=== PATIENT | male | born 1950 | race Caucasian/White ===

== ENCOUNTER 2024-01-26 14:40 | Outpatient (OUT) | payer MEDICARE, SELFPAY | END 2024-01-26 14:41 | disposition home or self-care (01) | LOC: PST 14:41 | PROVIDERS: Family Provider Internal Medicine; Visit Provider Surgery | DX: Z01.818 Encounter for other preprocedural examination (principal); R19.5 Other fecal abnormalities ==

== ENCOUNTER 2024-02-03 07:19 | Day surgery (SDC) | payer MEDICARE, SELFPAY ==
--- NOTE | 2024-02-03 | OP_ITS ---
OPERATION DATE: 02/03/2024 PREOPERATIVE DIAGNOSIS: Positive Cologuard. POSTOPERATIVE DIAGNOSIS: Severe sigmoid diverticulosis, colon polyps x3; transverse colon with 3 mm and 7 mm polyps and sigmoid colon with 4 mm polyp. PROCEDURE: Colonoscopy to cecum with cold snare polypectomy x3. SURGEON: Rashad Valadez M.D. ANESTHESIA: Monitored anesthesia care. ESTIMATED BLOOD LOSS: Less than 1 mL. INDICATIONS AND CONSENT: Patient is a 73-year-old male presents for positive Cologuard. Indications, risks, benefits, alternatives of proceeding with colonoscopy were explained extensively to the patient, including the risks of bleeding, colon perforation or anesthetic complications. All of his questions were answered. Informed consent was obtained. PROCEDURE: Patient brought to the operating room, placed in the left lateral decubitus position. Monitored anesthesia care was provided. Rectal exam was performed which showed no masses or blood. The scope was inserted into the anal canal. Under direct visualization was advanced. With the aid of abdominal compression, it was advanced to the cecum where cecal markings were clearly identified. There was noted to be a good prep. Upon withdrawal of the scope, mucosal surfaces were carefully examined. There were no mass lesions or inflammatory changes. Within the transverse colon, there was noted to be a 3 mm sessile polyp that was removed with cold biopsy forceps with good hemostasis. Just distal to this was a 7 mm irregular sessile polyp that was removed with cold snare in a piecemeal fashion with good hemostasis. There was severe sigmoid diverticulosis. Within the sigmoid, there was noted to be a 4 mm, sessile polyp that was removed with cold snare with good hemostasis. The scope was retroflexed in the anal canal. There were prominent rectal veins but no significant hemorrhoidal disease. The scope was then withdrawn. Patient tolerated procedure well, was sent to recovery room in good condition. Follow up colonoscopy likely three years, but will depend on pathology results. CC: João Cordero D.O. JOE
--- OUTSIDE RECORDS SUMMARY | 2024-02-03 07:23 | XMS_ITS ---
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 Name Role Phone SHANITA CORDERO Admitting SHANITA Haile Attending Unavailable SHANITA CORDERO Consulting Unavailable ROBB REEVES V Consulting Unavailable SHANITA CORDERO JR Primary Care Physician Rashad CABALLERO Attending Unavailable SHANITA CORDERO Referring Unavailable Allergies Allergy Classification Reported Allergen(s) Allergy Type Date of Onset Reaction(s) Facility (1 source) No Known Medication Allergies; Translations: [No Known Medication Allergies] Propensity to adverse reactions (disorder) [facility] Repository Encounters Encounter Date Encounter Type Care Provider Facility Start: 12-23-2023 End: 12-23-2023 ambulatory [facility]ad [facility] Start: 12-23-2023 End: 12-23-2023 Patient encounter procedure Rashad CABALLERO [facility] Start: 09-07-2023 ambulatory Rashad CABALLERO Facility:[facility] Start: 12-22-2018 End: 12-23-2018 Patient encounter procedure SHANITA CORDERO Facility:[facility] Immunizations Immunization Date Immunization Notes Care Provider Fa amalia 04-15-2022 SARS-CoV-2 (COVID-19 ) [id number] Rashad CABALLERO [facility] 05-29-2021 SARS-CoV-2 (COVID-19 ) mRNA BNT-162b2 vax Rashad CABALLERO [facility] Comment on above: Result Comment: 2023: [id number] Medications Current Medications Medication Drug Class(es) Dates Sig (Normalized) Sig (Original) 3 ML semaglutide 1.34 MG/ML Pen Injector [Ozempic] (1 source) Start: 11-30-2023 inject 1 mg by subcutaneous injection every week Ozempic (1 mg dose) 4 mg/3 mL subcutaneous solution 1 mg, SubCutaneous, qWeek, Refills(s) 0 Start Date: 11/30/23 Status: Ordered allopurinol 100 mg oral tablet (1 source) Xanthine Oxidase Inhibitor Start: 11-30-2023 take 2 tablets by mouth once daily allopurinol 100 mg Tab 200 mg = 2 tab(s), Oral, Daily, Refills(s) 0 Start Date: 11/30/23 Status: Ordered apixaban 5 mg oral tablet (1 source) Factor Xa Inhibitor Start: 11-30-2023 take 1 tablet by mouth twice daily Eliquis 5 mg oral tablet 5 mg = 1 tab(s), Oral, BID, Refills(s) 0 Start Date: 11/30/23 Status: Ordered empagliflozin 25 mg oral tablet (1 source) Sodium-Glucose Cotransporter 2 Inhibitor Start: 11-30-2023 take 1 tablet by mouth once daily in the morning Jardiance 25 mg oral tablet 25 mg = 1 tab(s), Oral, qAM, Refills(s) 0 Start Date: 11/30/23 Status: Ordered ezetimibe 10 mg oral tablet (1 source) Dietary Cholesterol Absorption Inhibitor Start: 11-30-2023 take 1 tablet by mouth once daily Zetia 10 mg Tab 10 mg = 1 tab(s), Oral, Daily, Refills(s) 0 Start Date: 11/30/23 Status: Ordered fluticasone propionate 0.05 mg/actuat metered dose nasal spray (1 source) Corticosteroid Start: 11-30-2023 Flonase 0.05 mg/inh Hamill 2 spray(s), Nasal, BID, Refill(s) 0 Start Date: 11/30/23 Status: Ordered 24 hr metoprolol succinate 100 mg extended release oral tablet (1 source) beta-Adrenergic Sylvia Start: 11-30-2023 take 1 tablet by mouth once daily Toprol XL 100 mg Tab-ER 100 mg = 1 tab(s), Oral, Daily, Refills(s) 0 Start Date: 11/30/23 Status: Ordered montelukast 10 mg oral tablet (1 source) Leukotriene Receptor Antagonist Start: 11-30-2023 take 1 tablet by mouth once daily Singulair 10 mg Tab 10 mg = 1 tab(s), Oral, Daily, Refills(s) 0 Start Date: 11/30/23 Status: Ordered pantoprazole 40 mg delayed release oral tablet (1 source) Proton Pump Inhibitor Start: 11-30-2023 take 1 tablet by mouth once daily Protonix 40 mg Tab-DR 40 mg = 1 tab(s), Oral, Daily, Refills(s) 0 Start Date: 11/30/23 Status: Ordered rosuvastatin calcium 5 mg oral tablet (1 source) HMG-CoA Reductase Inhibitor Start: 11-30-2023 take 1 tablet by mouth once daily Crestor 5 mg Tab 5 mg = 1 tab(s), Oral, Daily, Refills(s) 0 Start Date: 11/30/23 Status: Ordered Trelegy Ellipta 100 mcg-62.5 mcg-25 mcg inhalation powder (1 source) Start: 11-30-2023 take 1 puff(s) by inhalation once daily Trelegy Ellipta 100 mcg-62.5 mcg-25 mcg inhalation powder = 1 puff(s), Inhalation, Daily, Refills(s) 0 Start Date: 11/30/23 Status: Ordered Vitamin D2 2000 intl units oral capsule (1 source) Start: 11-30-2023 take 1 capsule by mouth once daily Vitamin D2 2000 intl units oral capsule 50 mcg = 1 cap(s), Oral, Daily, cap(s), Refills(s) 0 Start Date: 11/30/23 Status: Ordered Payers Date Payer Category Payer Private Health Insurance [id number] 1959 Medicare [id number] 1950 Unknown [id number] 1950 Unknown [id number] Problems Problem Classification Problem Date Documented Da te Episodic/Chronic Aortic; peripheral; and visceral artery aneurysms (2 sources) Abdominal aortic aneurysm, without rupture; Translations: [Abdominal aortic aneurysm] Onset: 12-30-2018 11-30-2023 Chronic Cardiac dysrhythmias (1 source) Atrial fibrillation 12-23-2023 Chronic Deficiency and other anemia (1 source) Iron deficiency anemia 11-30-2023 Episodic Diabetes mellitus without complication (1 source) Diabetes mellitus 11-30-2023 Chronic Disorders of lipid metabolism (1 source) Hyperlipidemia 11-30-2023 Chronic Diverticulosis and diverticulitis (1 source) Diverticular disease 11-30-2023 Chronic Essential hypertension (2 sources) Essential (primary) hypertension; Translations: [Essential hypertension] Onset: 12-30-2018 11-30-2023 Chronic Gout and other crystal arthropathies (1 source) Gout 11-30-2023 Chronic Nonspecific chest pain (4 sources) Other chest pain; Translations: [OTHER CHEST PAIN] Onset: 12-22-2018 Episodic Nutritional deficiencies (1 source) Vitamin D deficiency 11-30-2023 Chronic Other circulatory disease (1 source) H/O: cardiovascular disease 11-30-2023 Episodic Other circulatory disease (1 source) History of subarachnoid hemorrhage 11-30-2023 Episodic Other connective tissue disease (1 source) Neurological deficit 11-30-2023 Episodic Other gastrointestinal disorders (1 source) Abnormal feces; Translations: [Other fecal abnormalities] Onset: 12-23-2023 Episodic Other nutritional; endocrine; and metabolic disorders (1 source) Body mass index 30+ - obesity 12-23-2023 Chronic Other nutritional; endocrine; and metabolic disorders (1 source) Obesity caused by energy imbalance 12-23-2023 Chronic Other screening for suspected conditions (not mental disorders or infectious disease) (1 source) Stool DNA-based colorectal cancer screening positive 11-30-2023 Episodic Other upper respiratory disease (1 source) Allergic rhinitis 11-30-2023 Chronic Residual codes; unclassified (1 source) Personal history of other specified conditions; Translations: [PERSONAL HISTORY OTH SPEC CONDITION] Onset: 12-30-2018 Episodic Residual codes; unclassified (1 source) Insomnia 11-30-2023 Episodic Spondylosis; intervertebral disc disorders; other back problems (1 source) Cervical spondylosis 11-30-2023 Chronic Procedures Date Procedure Procedure Detail Performing Clinician Start: 07-12-2015 Colonoscopy Rashad SR Start: 08-03-2001 Craniotomy Rashad SR Cardiac catheterization Yuriy CABALLERO Colonoscopy Rashad ADA Esophagogastroduodenoscopy M ryann WILKINSCassia Results Test Name Value Interpretation Reference Range Facility Insurance Correspondenceon 0 01-22-2024 Insurance Correspondence [id number]#1.00TIFF Normal [facility] Consent for Procedure/Surger yon 12-24-2023 Consent for Procedure/Surgery [id number]# 1.00TIFF Normal [facility] Facesheeton 12-24-2023 Facesheet [id number]# 1.00TIFF Normal [facility] Formson 12-24-2023 Forms [id number]# 1.00TIFF [facility] Ambulatory Visit Summaryon 0 12-23-2023 Ambulatory Visit Summary MANNIE MACIEL :1950 Visit Date:12/23/2023 Ambulatory Visit Instructions Your Diagnosis Positive colorectal cancer screening using Cologuard test Your Care Team Attending Physician - ADA BALDERRAMA, Rashad Sheriff Primary Care Physician - SHANITA CORDERO JR, DO Referring Physician - SHANITA CORDERO JR, DO This Is Your Medications List Contact prescribing physician if questions or concerns allopurinol (allopurinol 100 mg Tab) apixaban (Eliquis 5 mg oral tablet) empagliflozin (Jardiance 25 mg oral tablet) ergocalciferol (Vitamin D2 2000 intl units oral capsule) ezetimibe (Zetia 10 mg Tab) fluticasone nasal (Flonase 0.05 mg/inh Hamill) fluticasone/umeclidi nium/vilanterol (Trelegy Ellipta 100 mcg-62.5 mcg-25 mcg inhalation powder) metoprolol (Toprol XL 100 mg Tab-ER) montelukast (Singulair 10 mg Tab) pantoprazole (Protonix 40 mg Tab-DR) rosuvastatin (Crestor 5 mg Tab) semaglutide (Ozempic (1 mg dose) 4 mg/3 mL subcutaneous solution) Procedures Performed Colonoscopy (07/12/2015), Craniotomy (2001), Cardiac catheterization, Colonoscopy, EGD - esophagogastroduoden oscopy. Discharge Vitals Heart Rate (Peripheral) 68 Respiratory Rate 16 Blood Pressure 112/60 Height 167 cm Height 66 in Weight 88.4 kg Weight 194.48 lb BMI 31.7 Medications What How Much When Instructions Unchanged allopurinol (allopurinol 100 mg Tab) 2 Tablets By Mouth Every day Contact prescribing physician if questions or concerns Unchanged apixaban (Eliquis 5 mg oral tablet) 1 Tablets By Mouth 2 times a day Contact prescribing physician if questions or concerns Unchanged empagliflozin (Jardiance 25 mg oral tablet) 1 Tablets By Mouth Once a day (in the morning) Contact prescribing physician if questions or concerns Unchanged ergocalciferol (Vitamin D2 2000 intl units oral capsule) 1 Capsules By Mouth Every day Contact prescribing physician if questions or concerns Unchanged ezetimibe (Zetia 10 mg Tab) 1 Tablets By Mouth Every day Contact prescribing physician if questions or concerns Unchanged fluticasone nasal (Flonase 0.05 mg/ inh Hamill) 2 Sprays Nasal Inhalation 2 times a day Contact prescribing physician if questions or concerns Unchanged fluticasone/ umeclidinium/ vilanterol (Trelegy Ellipta 100 mcg-62.5 mcg-25 mcg inhalation powder) 1 Puffs Inhalation Every day Contact prescribing physician if questions or concerns Unchanged metoprolol (Toprol XL 100 mg Tab-ER) 1 Tablets By Mouth Every day Contact prescribing physician if questions or concerns Unchanged montelukast (Singulair 10 mg Tab) 1 Tablets By Mouth Every day Contact prescribing physician if questions or concerns Unchanged pantoprazole (Protonix 40 mg Tab-DR) 1 Tablets By Mouth Every day Contact prescribing physician if questions or concerns Unchanged rosuvastatin (Crestor 5 mg Tab) 1 Tablets By Mouth Every day Contact prescribing physician if questions or concerns Unchanged semaglutide (Ozempic (1 mg dose) 4 mg/ 3 mL subcutaneous solution) 1 Milligram Subcutaneous Every week Contact prescribing physician if questions or concerns Allergies No Known Allergies No Known Medication Allergies Problems Ongoing - Any problem that you are currently receiving treatment for. Abdominal aortic aneurysm Allergic rhinitis Atrial fibrillation BMI 31.0-31.9,adult Diabetes Diverticulosis DJD (degenerative joint disease), cervical Essential hypertension Gout History of intracranial aneurysm History of subarachnoid hemorrhage Hyperlipidemia Insomnia Iron deficiency anemia Neurosensory deficit Obesity due to excess calories Positive colorectal cancer screening using Cologuard test Vitamin D deficiency Patient Survey You may receive a survey via text or e-mail asking about your office visit. Please share your experience with us by completing your survey. We appreciate your feedback and thank you for choosing us for your care. Normal [facility] Lab Reportson 12-02-2023 Lab Reports [id number] #1.00TIFF Normal [facility] Physician Referralon 024 Physician Referral [id number] #1.00TIFF Normal [facility] Transfer Inon 09-08-2023 Transfer In [id number] #1.00TIFF Normal [facility] C-Reactive Proteinon 021 C-Reactive Protein 5.4 mg/dL High 0.0-1.0 [facility] Comment on above: Result Comment: PERF ORMED BY: [place] [address] PATHOLOGIST XRAY TECH ELEN DE LEON M.D. Performed By: #### C BC, LDH, CRP, CMP, HS TROP, DEREK #### [address] head/brain wo conon 03-30 CT head/brain wo con [facility] [place] [address] CT Scan Report Signed Patient: Mannie Maciel MR#: [id number] : 1950 Acct:[id number] Age/Sex: 70 / M ADM Date: 03/30/21 Loc: ER Room: Type: [facility] ER Attending Dr: Ordering Provider: Consuelo Abdi APRN Date of Service: 03/30/21 CT/CT head/brain wo con: Syncopal episode Copies to: Consuelo Abdi APRN CT head 03/30/2021. CLINICAL DATA: Syncopal episode. TECHNIQUE: CT of the head was performed without contrast. This CT exam was performed using one or more of the following dose reduction techniques: Automated exposure control, adjustment of the mA and/or kV according to patient size, or use of iterative reconstruction technique. COMPARISON: None. FINDINGS: The patient is status post right frontotemporal craniotomy and there is an aneurysm clip in the right suprasellar region. There are mild parenchymal volume loss and chronic microvascular ischemic changes. There are no findings to suggest an acute large vessel infarct. There is no acute intracranial hemorrhage. No intracranial mass or mass effect is identified. No abnormal extra-axial fluid collection is seen. The visualized paranasal sinuses and the mastoids appear unremarkable. CT/CT head/brain wo con IMPRESSION: 1. Postsurgical changes. 2. Mild parenchymal volume loss and chronic microvascular ischemic changes. 3. No acute intracranial abnormality. Impression dictated by: Jacob Rousseau Jr., M.D.03/30/2021 2:49 PM Dictation Location: [place] [address] Transcribed By: [facility] 03/30/21 1449 Dictated By: Jacob Rousseau Jr, MD 03/30/21 1446 Signed By: 03/30/21 1449 Normal [facility] Complete Blood Count Auto Di ffon 03-30-2021 Basophils (Bld) [#/Vol] 0.0 10*3/uL Normal 0.0-0.2 [facility] Comment on above: Result Comment: PERF ORMED BY: [address] [place] [address] PATHOLOGIST XRAY TECH ELEN DE LEON M.D. Performed By: #### C BC, LDH, CRP, CMP, HS TROP, DEREK #### [facility] [address] Basophils/100 WBC (Bld) 0.5 % Normal . [facility] Comment on above: Performed By: #### C BC, LDH, CRP, CMP, HS TROP, DEREK #### [facility] [address] [place] [address] [place] Eosinophils (Bld) [#/Vol] 0.0 10*3/uL Normal 0.0-0.45 [facility] Comment on above: Performed By: #### C BC, LDH, CRP, CMP, HS TROP, DEREK #### [address] Eosinophils/100 WBC (Bld) 0.1 % Normal . [facility] Comment on above: Performed By: #### C BC, LDH, CRP, CMP, HS TROP, DEREK #### [address] Erythrocyte distribution width (RBC) [Ratio] 14.8 % Normal 12.0-14.8 [facility] Comment on above: Performed By: #### C BC, LDH, CRP, CMP, HS TROP, DEREK #### [address] Hematocrit (Bld) [Volume fraction] 40.0 % Normal 38.8-50.0 [facility] Comment on above: Performed By: #### C BC, LDH, CRP, CMP, HS TROP, DEREK #### [address] Hemoglobin (Bld) [Mass/Vol] 13.2 g/dL Normal 13.0-17.0 [facility] Comment on above: Performed By: #### C BC, LDH, CRP, CMP, HS TROP, DEREK #### [address] Lymphocytes (Bld) [#/Vol] 0.5 10*3/uL Low 1.00-4.8 [facility] Comment on above: Performed By: #### C BC, LDH, CRP, CMP, HS TROP, DEREK #### [address] Lymphocytes/100 WBC (Bld) 10.8 % Normal . [facility] Comment on above: Performed By: #### C BC, LDH, CRP, CMP, HS TROP, DEREK #### [address] MCH (RBC) [Entitic mass] 30.3 pg Normal 27.5-35.2 [facility] Comment on above: Performed By: #### C BC, LDH, CRP, CMP, HS TROP, DEREK #### [address] MCV (RBC) [Entitic vol] 91.3 fL Normal 83.5-101 [facility] Comment on above: Performed By: #### C BC, LDH, CRP, CMP, HS TROP, DEREK #### [address] Mean Corpuscular HGB Conc 33.1 g/dL Normal 32.5-35.6 [facility] Comment on above: Performed By: #### C BC, LDH, CRP, CMP, HS TROP, DEREK #### [address] Monocytes (Bld) [#/Vol] 0.4 10*3/uL Normal 0.0-0.8 [facility] Comment on above: Performed By: #### C BC, LDH, CRP, CMP, HS TROP, DEREK #### [address] Monocytes/100 WBC (Bld) 8.5 % Normal . [facility] Comment on above: Performed By: #### C BC, LDH, CRP, CMP, HS TROP, DEREK #### [address] Neutrophils (Bld) [#/Vol] 3.9 10*3/uL Normal 1.8-7.7 [facility] Comment on above: Performed By: #### C BC, LDH, CRP, CMP, HS TROP, DEREK #### [address] Neutrophils/100 WBC (Bld) 80.1 % Normal . [facility] Comment on above: Performed By: #### C BC, LDH, CRP, CMP, HS TROP, DEREK #### [place] [address] [place] Nucleated RBC/100 WBC (Bld) [Ratio] 0.0 % Normal 0-0.5 [facility] Comment on above: Performed By: #### C BC, LDH, CRP, CMP, HS TROP, DEREK #### [address] Platelet mean volume (Bld) [Entitic vol] 7.6 fL Normal 6.6-10.1 [facility] Comment on above: Performed By: #### C BC, LDH, CRP, CMP, HS TROP, DEREK #### [address] Platelets (Bld) [#/Vol] 211 10*3/uL Normal 150-450 [facility] Comment on above: Performed By: #### C BC, LDH, CRP, CMP, HS TROP, DEREK #### [address] RBC (Bld) [#/Vol] 4.38 10*6/uL Normal 3.90-5.60 [facility] Comment on above: Performed By: #### C BC, LDH, CRP, CMP, HS TROP, DEREK #### [address] WBC (Bld) [#/Vol] 4.8 10*3/uL Normal 4.5-11.0 [facility] Comment on above: Performed By: #### C BC, LDH, CRP, CMP, HS TROP, DEREK #### [address] Comprehensive Metabolic Pane andres 03-30-2021 Albumin [Mass/Vol] 3.7 g/dL Normal 3.2-5.5 [facility] Comment on above: Performed By: #### C BC, LDH, CRP, CMP, HS TROP, DEREK #### [address] Albumin/Globulin [Mass ratio] 1.2 {ratio} Normal [facility] Comment on above: Performed By: #### C BC, LDH, CRP, CMP, HS TROP, DEREK #### [address] ALP [Catalytic activity/Vol] 47 U/L Normal 32-92 [facility] Comment on above: Performed By: #### C BC, LDH, CRP, CMP, HS TROP, DEREK #### [facility] [address] ALT [Catalytic activity/Vol] 21 U/L Normal 10-60 [facility] Comment on above: Performed By: #### C BC, LDH, CRP, CMP, HS TROP, DEREK #### [address] AST [Catalytic activity/Vol] 22 U/L Normal 10-42 [facility] Comment on above: Performed By: #### C BC, LDH, CRP, CMP, HS TROP, DEREK #### [address] Bilirubin [Mass/Vol] 0.7 mg/dL Normal 0.3-1.2 [facility] Comment on above: Performed By: #### C BC, LDH, CRP, CMP, HS TROP, DEREK #### [address] Calcium [Mass/Vol] 8.9 mg/dL Normal 8.2-10.2 [facility] Comment on above: Performed By: #### C BC, LDH, CRP, CMP, HS TROP, DEREK #### [place] [address] [place] Chloride [Moles/Vol] 101 mmol/L Normal 95-114 [facility] Comment on above: Performed By: #### C BC, LDH, CRP, CMP, HS TROP, DEREK #### [place] [address] [place] CO2 [Moles/Vol] 26.5 mmol/L Normal 22.0-30.0 [facility] Comment on above: Performed By: #### C BC, LDH, CRP, CMP, HS TROP, DEREK #### [address] Creatinine [Mass/Vol] 1.54 mg/dL High 0.64-1.27 [facility] Comment on above: Performed By: #### C BC, LDH, CRP, CMP, HS TROP, DEREK #### [facility] [address] Creatinine Clr Calc Pharmacy 47.08 [facility] Comment on above: Performed By: #### C BC, LDH, CRP, CMP, HS TROP, DEREK #### [facility] [address] Estimated GFR ( [place] 54 [facility] Comment on above: Result Comment: GFR estimated reference range: According to KDOQI guidelines, <60 ml/min/1.73m2 is sufficient to diagnose a patient with chronic kidney disease. Performed By: #### C BC, LDH, CRP, CMP, HS TROP, DEREK #### [facility] [address] Estimated GFR (Non- Am 45 [facility] Comment on above: Performed By: #### C BC, LDH, CRP, CMP, HS TROP, DEREK #### [address] Globulin (S) [Mass/Vol] 3.2 g/dL [facility] Comment on above: Performed By: #### C BC, LDH, CRP, CMP, HS TROP, DEREK #### [address] Glucose [Mass/Vol] 143 mg/dL High 70-100 [facility] Comment on above: Result Comment: [place] Glucose Reference Range is dependent on time and content of last meal. Glucose of more than 200 mg/dL in a nonstressed, ambulatory subject supports the diagnosis of Diabetes Mellitus. ADA recommended reference range Performed By: #### C BC, LDH, CRP, CMP, HS TROP, DEREK #### [address] Potassium [Moles/Vol] 4.2 mmol/L Normal 3.5-5.1 [facility] Comment on above: Performed By: #### C BC, LDH, CRP, CMP, HS TROP, DEREK #### [facility] [address] [place] [address] [place] Protein [Mass/Vol] 6.9 g/dL Normal 6.1-7.9 [facility] Comment on above: Performed By: #### C BC, LDH, CRP, CMP, HS TROP, DEREK #### [address] Sodium [Moles/Vol] 137 mmol/L Normal 136-146 [facility] Comment on above: Performed By: #### C BC, LDH, CRP, CMP, HS TROP, DEREK #### [address] Urea nitrogen [Mass/Vol] 14 mg/dL Normal 9-23 [facility] Comment on above: Performed By: #### C BC, LDH, CRP, CMP, HS TROP, DEREK #### [address] D-Dimer High Sensitivityon 0 03-30-2021 D-Dimer High Sensitivity < 200 Normal 0-243 [facility] Comment on above: Result Comment: The reference range for D-dimer is <243 ng/mL D-dimer units. D-dimer results must be used in conjunction with a clinical pretest probability (PTP) assessment model for deep vein thrombosis (DVT) and pulmonary embolism (PE). Results <230 ng/mL d-dimer units can be used as a negative predictor in patients with low or moderate probability for DVT/PE. Results above the exclusion threshold of 230 ng/ml D-dimer units for DVT/PE may indicate the need for further diagnostic testing. D-Dimer can be increased in hospitalized patients due to co-morbid conditions. PERFORMED BY: [place] [address] PATHOLOGIST XRAY TECH ELEN DE LEON M.D. Performed By: #### P TT, PT, DDIMER #### [address] Dipstick and Microscopicon 0 03-30-2021 Appearance (U) Clear Normal Clear [facility] Comment on above: Order Comment: Name Collection Type:: Clean-Voided Midstream Performed By: #### C BC, LDH, CRP, CMP, HS TROP, DEREK #### [facility] [address] [place] [address] [place] Bacteria,Urine None Seen Normal None Seen [facility] Comment on above: Order Comment: Name Collection Type:: Clean-Voided Midstream Performed By: #### C BC, LDH, CRP, CMP, HS TROP, DEREK #### [facility] [address] [place] [address] [place] Bilirubin,Urine Negative Normal Negative [facility] Comment on above: Order Comment: Name Collection Type:: Clean-Voided Midstream Performed By: #### C BC, LDH, CRP, CMP, HS TROP, DEREK #### [facility] [address] [place] [address] [place] Coarse Granular Casts,Urine Rare Normal 0-1 [facility] Comment on above: Order Comment: Name Collection Type:: Clean-Voided Midstream Performed By: #### C BC, LDH, CRP, CMP, HS TROP, DEREK #### [facility] [address] [place] [address] [place] Color (U) Yellow Normal Yellow [facility] Comment on above: Order Comment: Name Collection Type:: Clean-Voided Midstream Performed By: #### C BC, LDH, CRP, CMP, HS TROP, DEREK #### [facility] [address] [place] [address] [place] Fine Granular Casts,Urine Rare Normal 0-1 [facility] Comment on above: Order Comment: Name Collection Type:: Clean-Voided Midstream Performed By: #### C BC, LDH, CRP, CMP, HS TROP, DEREK #### [facility] [address] [place] [address] [place] Glucose Ql (U) Normal Normal Normal [facility] Comment on above: Order Comment: Name Collection Type:: Clean-Voided Midstream Performed By: #### C BC, LDH, CRP, CMP, HS TROP, DEREK #### [facility] [address] [place] [address] [place] Hyaline Casts,Urine 3-4 High 0-1 [facility] Comment on above: Order Comment: Name Collection Type:: Clean-Voided Midstream Performed By: #### C BC, LDH, CRP, CMP, HS TROP, DEREK #### [address] Ketones Ql (U) 1+ High Negative [facility] Comment on above: Order Comment: Name Collection Type:: Clean-Voided Midstream Performed By: #### C BC, LDH, CRP, CMP, HS TROP, DEREK #### [address] Leukocyte esterase Test strip Ql (U) Negative Normal Negative [facility] Comment on above: Order Comment: Name Collection Type:: Clean-Voided Midstream Performed By: #### C BC, LDH, CRP, CMP, HS TROP, DEREK #### [address] Nitrite,Urine Negative Normal Negative [facility] Comment on above: Order Comment: Name Collection Type:: Clean-Voided Midstream Performed By: #### C BC, LDH, CRP, CMP, HS TROP, DEREK #### [address] Occult Blood,Urine Negative Normal Negative [facility] Comment on above: Order Comment: Name Collection Type:: Clean-Voided Midstream Result Comment: PERF ORMED BY: [place] [address] PATHOLOGIST XRAY TECH ELEN DE LEON M.D. Performed By: #### C BC, LDH, CRP, CMP, HS TROP, DEREK #### [address] Other Casts,Urine None Seen Normal None Seen [facility] Comment on above: Order Comment: Name Collection Type:: Clean-Voided Midstream Result Comment: PERF ORMED BY: [place] [address] PATHOLOGIST XRAY TECH ELEN DE LEON M.D. Performed By: #### C BC, LDH, CRP, CMP, HS TROP, DEREK #### [address] pH (U) 6.5 [pH] Normal 5.0-9.0 [facility] Comment on above: Order Comment: Name Collection Type:: Clean-Voided Midstream Performed By: #### C BC, LDH, CRP, CMP, HS TROP, DEREK #### [address] Protein (U) [Mass/Vol] 100 mg/dL High Negative Fi [facility] Comment on above: Order Comment: Name Collection Type:: Clean-Voided Midstream Performed By: #### C BC, LDH, CRP, CMP, HS TROP, DEREK #### [address] RBC,Urine 3-4 Normal 0-4 [facility] Comment on above: Order Comment: Name Collection Type:: Clean-Voided Midstream Performed By: #### C BC, LDH, CRP, CMP, HS TROP, DEREK #### [address] Renal Epithelial Cells,Urine None Seen Normal 0-1 [facility] Comment on above: Order Comment: Name Collection Type:: Clean-Voided Midstream Performed By: #### C BC, LDH, CRP, CMP, HS TROP, DEREK #### [address] Specificy [place],Urine 1.021 Normal 1.001-1.030 [facility] Comment on above: Order Comment: Name Collection Type:: Clean-Voided Midstream Performed By: #### C BC, LDH, CRP, CMP, HS TROP, DEREK #### [address] Squamous Epithelial Cell,Urine 10-19 High 0-2 [facility] Comment on above: Order Comment: Name Collection Type:: Clean-Voided Midstream Performed By: #### C BC, LDH, CRP, CMP, HS TROP, DEREK #### [address] Urobilinogen,Urine Normal Normal Normal [facility] Comment on above: Order Comment: Name Collection Type:: Clean-Voided Midstream Performed By: #### C BC, LDH, CRP, CMP, HS TROP, DEREK #### [facility] [address] WBC,Urine 5-9 High 0-4 [facility] Comment on above: Order Comment: Name Collection Type:: Clean-Voided Midstream Performed By: #### C BC, LDH, CRP, CMP, HS TROP, DEREK #### [facility] [address] ECG 12 lead ECGon 03-30-2021 ECG 12 lead ECG [facility] [place] [address] [place] [address] Electrocardiograph Report Signed Patient: Mannie Maciel MR#: [id number] : 1950 Acct:[id number] Age/Sex: 70 / M ADM Date: 03/30/21 Loc: ER Room: Type: [facility] ER Attending Dr: Ordering Provider: Consuelo Abdi APRN Date of Service: 03/30/21 ECG/ECG 12 lead ECG: SOB Copies to: Test Reason : Blood Pressure : 090/054 mmHG Vent. Rate : 105 BPM Atrial Rate : 326 BPM P-R Int : 000 ms QRS Dur : 076 ms QT Int : 336 ms P-R-T Axes : 000 000 031 degrees QTc Int : 444 ms Atrial fibrillation with rapid ventricular response Abnormal ECG Confirmed by Jacky BURGOS DO ([id number]) on 03/30/2021 6:35:15 PM Referred By: Electronically Signed By:Jacky BURGOS DO Transcribed By: MUS Dictated By: Jacky Burgos DO 03/30/21 1318 Signed By: 03/30/21 1835 Normal [facility] Ferritinon 03-30-2021 Ferritin [Mass/Vol] 320.7 ng/mL Normal 23.9-336.2 [facility] Comment on above: Performed By: #### C BC, LDH, CRP, CMP, HS TROP, DEREK #### [facility] [address] [place], [place] [id number] [facility] LDH Lactate Dehydrogenaseon 03-30-2021 LDH Lactate Dehydrogenase 148 U/L Normal 45-190 [facility] Comment on above: Performed By: #### C BC, LDH, CRP, CMP, HS TROP, DEREK #### [facility] [address] [place] [address] [place] Partial Thromboplastin Timeo n 03-30-2021 aPTT Coag (Bld) [Time] 32.7 s Normal 25.1-36.5 [facility] Comment on above: Performed By: #### P TT, PT, DDIMER #### [facility] [address] [place] [address] [place] Prothrombin Time INRon 03-30 INR Coag (PPP) [Relative time] 1.5 {INR} Normal [facility] Comment on above: Result Comment: INR Therapeutic Range A) Pre- and Peroperative OAT started two weeks before surgery. NOT HIP SURGERY: 1.5 - 2.5 HIP SURGERY: 2 - 3 B) Primary and secondary prevention of venous THROMBOSIS: 2 - 3 C) Active venous thrombosis, pulmonary embolism and prevention of recurrent venous thrombosis: 2 - 3 D) Prevention of arterial thromboembolism including patients with mechanical heart valves: 3 - 4.5 Performed By: #### P TT, PT, DDIMER #### [address] PT Coag (PPP) [Time] 17.3 s High 9.0-12.9 [facility] Comment on above: Performed By: #### P TT, PT, DDIMER #### [address] Troponin I High Sensitivityo n 03-30-2021 Troponin I High Sensitivity 7 pg/mL Normal 0-20 [facility] Comment on above: Result Comment: PERF ORMED BY: [place] [address] PATHOLOGIST XRAY TECH ELEN DE LEON M.D. Performed By: #### C BC, LDH, CRP, CMP, HS TROP, DEREK #### [address] XR chest 1V portableon 03-30 XR chest 1V portable [facility] [place] [address] [place] [address] XRay Report Signed Patient: Mannie Maciel MR#: [id number] : 1950 Acct:[id number] Age/Sex: 70 / M ADM Date: 03/30/21 Loc: ER Room: Type: [facility] ER Attending Dr: Ordering Provider: Consuelo Abdi APRN Date of Service: 03/30/21 XR/XR chest 1V portable: COUGH Copies to: ANGELA Cantupatrick Trujillo DO Chest 03/30/2021. CLINICAL DATA: Cough and shortness of breath. FINDINGS: A single portable frontal view of the chest was obtained and is compared with a prior study 11/22/2010. The cardiac silhouette is enlarged. The pulmonary vasculature is within normal limits. There is mild atelectasis or scarring in both lungs. No segmental or lobar pulmonary consolidation or collapse is identified. No pneumothorax or pleural effusion is seen. XR/XR chest 1V portable IMPRESSION: Cardiomegaly and mild atelectasis or scarring in both lungs. Impression dictated by: Jacob Rousseau Jr., M.D.03/30/2021 5:52 PM Dictation Location: [place] [address] Transcribed By: [facility] 03/30/211751 Dictated By: Jacob Rousseau Jr, MD 03/30/211749 Signed By: 03/30/211751 [facility] CTA CHEST/ABD/PELVIS W WOon 12-22-2018 CTA CHEST/ABD/PELVIS W WO Patient: MANNIE MACIEL. Exam Date: 12/22/2018 : 1950 Gender:M Ordering : DR SHANITA CORDERO D.O. Admission #: [id number] Family : Order #: [id number] CLICK HERE TO VIEW EXAM RADIOLOGY REPORT PROCEDURE: CTA CHEST/ABD/PELVIS WITH AND WITHOUT CONTRAST COMPARISON: None. INDICATIONS: Chronic chest pressure, essential hypertension TECHNIQUE: After obtaining the patient's consent, CT images of the chest, abdomen and pelvis were obtained without and with non-ionic intravenous contrast material. Axial, Coronal, and Sagittal images. Multi-planar reformatted/3-D images were created to optimize visualization of vascular anatomy. DOSE: 1486mGycm; 100cc Omnipaque 350 FINDINGS: VASCULATURE: No pulmonary embolism or abnormal opacity. LUNGS: No visible pulmonary disease. PLEURA: No mass, effusion, or pneumothorax. HARRISON: No mass or adenopathy. MEDIASTINUM: No mass or adenopathy. CARDIAC: No enlargement, pericardial effusion, or pericardial thickening. CHEST WALL: No mass or axillary adenopathy. AORTA/VASCULAR: No aneurysm or dissection. CELIAC ARTERY: Normal celiac vessels. SMA: Normal mesenteric vessels. RENAL ARTERIES: 2 right and a single left renal artery LIVER: Normal. No enlargement, atrophy, abnormal density, or significant focal lesion. BILIARY: No visible dilatation or calcification. PANCREAS: No lesion, fluid collection, ductal dilatation, or atrophy. SPLEEN: No enlargement or focal lesion. ADRENALS: No mass or enlargement. KIDNEYS: No mass, obstruction, or calcification. BOWEL/MESENTERY: Moderate colonic diverticulosis. Nonobstructive bowel gas pattern. RETROPERITONEUM: No mass or adenopathy. ABDOMINAL WALL: No mass or hernia. BONES: No bony lesion or fracture. CONCLUSION: 1. No aortic aneurysm identified Dictated by: Robb Reeves M.D. on 12/22/2018 at 10:51 Approved by: Robb Reeves M.D. on 12/22/2018 at 11:[address] [facility] Social History Date Type Detail Facility Start: 12-23-2023 Tobacco smoking status Never s moked tobacco (finding) [facility] At [facility] Vital Signs Date Time Vital Sign Value Performing Clinician Stacie felipe 12-23-2023 14:08-0400 Blood Pressure Location [place] [facility] 12-23-2023 14:08-0400 Diastolic blood pressure 60 mm[Hg] [place] [facility] 12-23-2023 14:08-0400 Heart rate 68 /min [place] [facility] 12-23-2023 14:08-0400 Respiratory rate 16 /min [facility] 12-23-2023 14:08-0400 Systolic blood pressure 112 mm[Hg] Rashad CABALLERO [facility] Functional Status Date Assessment Result Facility 12-23-2023 [facility] Clinical Note 12-23-2023 Note Date & Type Note Facility 12-23-2023 Note Chief Complaint consultation for positive Cologuard HPI Staff 73 year old male presents on consultation from Dr. Cordero for positive Cologuard. Denies abdominal or rectal pain. No rectal bleeding or change in bowel habits. Denies nausea or vomiting. No unexplained weight loss. Patient on Eliquis for a.fib. Last colonoscopy completed 07/2015 with diverticulosis. No known family history of colon cancer. History of Present Illness 73 yo male with h/o htn, cerebral aneurysm, DMII, hyperlipidemia, AAA, atrial fibrillation,on Eliquis, referred for positive Cologuard; patient denies change in bms or blood in stools, no abd complaints; no abd operations; last colonoscopy 07/2015 with severe sigmoid diverticulosis; on Eliquis, no asa or NSAID use; no tobacco use; no fmhx of GI malignancy or IBD. Review of Systems PHQ Score Initial Depression Screen Score: 0 SCORE ROS - Provider Constitutional: no fever, no sweats, no weight loss. Eyes: no glasses, no blurred vision, no visual loss. ENMT: no dentures, no hoarseness, no swallowing difficulties, no hearing loss, no ear infection(s), no nose bleeds. Cardiovascular: normal blood pressure, no chest pain, regular heartbeat, no heart murmur. Respiratory: no shortness of breath, no cough, no asthma, no wheezing. Gastrointestinal: no nausea, no vomiting, no diarrhea, no constipation, no blood in stool, no change in bowel habits, no abdominal pain, no hepatitis. Genitourinary: no kidney stones, no urine infection, no dysuria. Musculoskeletal: no pain, no weakness. Skin: no changing moles, no rash, no skin lumps. Neurologic: no seizures, no epilepsy, no headache. Psychiatric: no emotional or psychiatric problem. Heme/Lymph: no bleeding problems, no anemia, no blood clots, no transfusions. Allergy/Immunologic: no swollen lymph nodes/glands, no IV drug abuse. Other: Additional ROS info: Except as noted in the above Review of Systems and in the History of Present Illness, all other systems have been reviewed and are negative or noncontributory. Physical Exam Vitals & Measurements HR: 68(Peripheral) RR: 16 BP: 112/60 HT: 66 in HT: 167 cm WT: 88.4 kg WT: 194.48 lb BMI: 31.7 HEENT: normal conjunctiva, sclera clear, no scleral icterus, EOM intact, PERRLA, oral mucosa moist without lesions. Neck: trachea midline, no mass, symmetric, no thyromegaly or nodules, no adenopathy Respiratory: lungs CTA, respirations non labored. Cardiovascular: regular rate and rhythm, no murmur, no pedal edema or varicosities. Gastrointestinal: obese,soft, non distended, no tenderness, no masses, no palpable hernias, diastasis recti no, no hepatosplenomegaly; normal bs Lymphatic: no cervical adenopathy, no supraclavicular adenopathy. Musculoskeletal: normal gait, digits and nails without infection, nodes, cyanosis, clubbing. Skin: no rashes, no lesions, no ulcers, no subcutaneous nodules, induration. Psychiatric/Neuro: oriented to time, place, person, judgement normal, affect appropriate for age, insight intact, no focal deficits. Tests: labs reviewed, review of old records completed , Discussed surgical options, risks, and possible complications with patient. Assessment/Plan 1. Positive colorectal cancer screening using Cologuard test (R19.5: Other fecal abnormalities) plan colonoscopy under anesthesia, informed consent obtained. Follow-up No qualifying data available Problem List/Past Medical History Ongoing Abdominal aortic aneurysm Allergic rhinitis Atrial fibrillation BMI 31.0-31.9,adult Diabetes Diverticulosis DJD (degenerative joint disease), cervical Essential hypertension Gout History of intracranial aneurysm History of subarachnoid hemorrhage Hyperlipidemia Insomnia Iron deficiency anemia Neurosensory deficit Obesity due to excess calories Positive colorectal cancer screening using Cologuard test Vitamin D deficiency Historical No qualifying data Procedure/Surgical History Colonoscopy (07/12/2015), Craniotomy (2001), Cardiac catheterization, Colonoscopy, EGD - esophagogastroduodenoscopy. Medications allopurinol 100 mg Tab, 200 mg= 2 tab(s), Oral, Daily Crestor 5 mg Tab, 5 mg= 1 tab(s), Oral, Daily Eliquis 5 mg oral tablet, 5 mg= 1 tab(s), Oral, BID Flonase 0.05 mg/inh [place]ill, 2 spray(s), Nasal, BID Jardiance 25 mg oral tablet, 25 mg= 1 tab(s), Oral, qAM Ozempic (1 mg dose) 4 mg/3 mL subcutaneous solution, 1 mg, SubCutaneous, qWeek Protonix 40 mg Tab-DR, 40 mg= 1 tab(s), Oral, Daily Singulair 10 mg Tab, 10 mg= 1 tab(s), Oral, Daily Toprol XL 100 mg Tab-ER, 100 mg= 1 tab(s), Oral, Daily Trelegy Ellipta 100 mcg-62.5 mcg-25 mcg inhalation powder, 1 puff(s), Inhalation, Daily Vitamin D2 2000 intl units oral capsule, 50 mcg= 1 cap(s), Oral, Daily Zetia 10 mg Tab, 10 mg= 1 tab(s), Oral, Daily Allergies No Known Allergies No Known Medication Allergies Social History Alcohol Current, Beer, Daily, 12 drinks/episode average., 12/23/2023 (more content not included)... [facility] Comment on above: Result Comment: Elec tronically Signed By: ADA BALDERRAMA, Rashad Barajas.sharron\Date and Time Signed: 12/23/23 14:34 EDT Evaluation + Plan note Note Date & Type Note Facility Evaluation + Plan note No data available for this section [facility] Hospital Discharge instructions Note Date & Type Note Facility Hospital Discharge instructions No data available for this section [facility] Progress note Note Date & Type Note Facility Progress note No data available for this section [facility] Summary Purpose Family History No Family History Records FoundNo Family History Records Found No data available for this section No Family History Records Found Advance Directives No Advanced Directives Records FoundNo Advanced Directives Records FoundNo Advanced Directives Records Found Additional Source Comments (unrecognized sect ion and content) No Status Records FoundNo Status Records FoundNo Status Records Found INFORMATION SOURCE (unrecogn ized section and content) DATE CREATED AUTHOR 03/13/2019 [facility] DATE CREATED AUTHOR AUTHOR'S ORGANIZ ATION 08/26/2021 [facility] DATE CREATED AUTHOR AUTHOR'S ORGANIZ ATION [facility]2024 [facility] team informatio n (unrecognized section and content) Personnel Name: SHANITA CORDERO JR, DO Address: Address: [address] [place] [id number] FOR RECORDS PERTAINING TO PATIENTS WHO ARE OR HAVE BEEN ENROLLED IN A CHEMICAL DEPENDENCY/SUBSTANCEABUSE PROGRAM, SOME INFORMATION MAY BE OMITTED. This clinical summary was aggregated from multiple sources. Caution should be exercised in using it in the provision of clinical care. This summary normalizes information from multiple sources, and as a consequence, information in this document may materially change the coding, format and clinical context of patient data. In addition, data may be omitted in some cases. CLINICAL DECISIONS SHOULD BE BASED ON THE PRIMARY CLINICAL RECORDS. [facility] [employer] [facility]. provides no warranty or guarantee of the accuracy or completeness of information in this document.
[2024-02-03 07:25] VITALS: BP 132/86; PULSE 107; TEMP 36.2; O2SAT 98; BMI 30.5
[2024-02-03] MEDS: LACTATED RINGER'S SOLUTION 1,000 ML 50 ML IV (07:52)
[2024-02-03 09:27] VITALS: BP 100/74; PULSE 78; TEMP 36.6; O2SAT 96
[2024-02-03 09:42] VITALS: BP 113/86; PULSE 73; O2SAT 94
[2024-02-03 09:57] VITALS: BP 113/75; PULSE 67; O2SAT 96
== END 2024-02-03 09:57 | disposition home or self-care (01) ==
PROVIDERS: Family Provider Internal Medicine; PCP Internal Medicine; Visit Provider Surgery
PROC: (CPT 45385; principal; 2024-02-03 08:35)
DX: R19.5 Other fecal abnormalities (principal); K57.30 Diverticulosis of large intestine without perforation or abscess without bleeding; D12.3 Benign neoplasm of transverse colon; D12.5 Benign neoplasm of sigmoid colon; I10 Essential (primary) hypertension; E11.9 Type 2 diabetes mellitus without complications; Z79.01 Long term (current) use of anticoagulants; I48.91 Unspecified atrial fibrillation; E78.5 Hyperlipidemia, unspecified; Z79.84 Long term (current) use of oral hypoglycemic drugs; Z79.85 Long-term (current) use of injectable non-insulin antidiabetic drugs; I67.1 Cerebral aneurysm, nonruptured
CPT/HCPCS: 45385; 88305; J2250; J2704; J3010